=== PATIENT | female | born 1970 | race Caucasian/White ===

== ENCOUNTER 2017-06-02 00:22 | Emergency (ER) | payer OTHER ==
[~2017-06-02] VITALS: Ht 160 cm; Wt 78.0 kg
[2017-06-02 00:23] VITALS: BP 132/83; PULSE 91; RESP 18; TEMP 98.4; O2SAT 100
--- NOTE | 2017-06-02 00:50 | PD ---
HPI Chief Complaint: Back/ Neck Pain or Injury Time Seen by Provider: 00:41 Travel History International Travel<30 days: No Contact w/Intl Traveler<30days: No Traveled to known affect area: No History of Present Illness HPI WHILE RESTING/SLEEPING SHE TURNED AND THE PAIN TO HER RIGHT SIDE OF NECK CAUSED HER TO WAKE UP. [place], 01/26, NONRADIATING, WORSENED BY MOVING NECK.... ALL:DENIES PMH: DM AND BULGING NECK DISC PSHX: GB, BTL PFSH Past Medical History Diabetes: Yes Patient Takes Glucophage: Yes ?: Not Tubal Ligation: Yes Past Surgical History Cholecystectomy: Yes Social History Alcohol Use: Yes (OCC) Tobacco Use: Yes (<5CIG DAILY) Substance Use: No Allergies-Medications (Allergen,Severity, Reaction): Coded Allergies: No Known Allergies (Unverified , 06/02/17) Reported Meds & Prescriptions Reported Meds & Active Scripts Active No Active Prescriptions or Reported Medications Review of Systems Except as stated in HPI: all other systems reviewed are Neg General / Constitutional: No: Fever Eyes: No: Visual changes HENT: No: Headaches Cardiovascular: No: Chest Pain or Discomfort Respiratory: No: Shortness of Breath Gastrointestinal: No: Abdominal Pain Genitourinary: No: Dysuria Musculoskeletal: Positive: Limited ROM, Pain Skin: No Rash Neurologic: No: Weakness Psychiatric: No: Depression Endocrine: No: Polydipsia Hematologic/Lymphatic: No: Easy Bruising Physical Exam Narrative GENERAL: SKIN: Warm and dry. HEAD: Atraumatic. Normocephalic. EYES: Pupils equal and round. No scleral icterus. No injection or drainage. ENT: No nasal bleeding or discharge. Mucous membranes pink and moist. NECK: Trachea midline. No JVD. SPASM PALPABLE AT POSTERIOR SCM, FROM OCCIPITAL TRIANGLE TO MID NECK PARASPINAL, NO MIDLINE TTP, CARDIOVASCULAR: Regular rate and rhythm. RESPIRATORY: No accessory muscle use. Clear to auscultation. Breath sounds equal bilaterally. GASTROINTESTINAL: Abdomen soft, non-tender, nondistended. MUSCULOSKELETAL: Extremities without clubbing, cyanosis, or edema. No obvious deformities. NEUROLOGICAL: Awake and alert. No obvious cranial nerve deficits. Motor grossly within normal limits. Five out of 5 muscle strength in the arms and legs. Normal speech. PSYCHIATRIC: Appropriate mood and affect; insight and judgment normal. Data Data Last Documented VS Vital Signs Date Time Temp Pulse Resp B/P (MAP) Pulse Ox O2 Delivery O2 Flow Rate FiO2 06/02/17 00:23 98.4 91 18 132/83 (99) 100 Room Air Orders Orders Ketorolac Inj (Toradol Inj) (06/02/17 01:00) Lorazepam Inj (Ativan Inj) (06/02/17 01:00) Ct Cerv Spine W/O Contrast (06/02/17 00:52) MDM Medical Decision Making Medical Screen Exam Complete: Yes Emergency Medical Condition: Yes Medical Record Reviewed: Yes Differential Diagnosis TORTICOLLIS V NECK SPRAIN V SPINAL CORD COMPRESSION V DISC DISEASE Narrative Course SIGNED OUT PENDING CT NECK, LONG NO MODERATE TO SEVERE SPINAL STENOSIS PRESENT, CAN D/C HOME. Diagnosis Primary Impression: Torticollis, unspecified Scripts No Active Prescriptions or Reported Meds Samson Faust MD Jun 02, 2017 00:50
[2017-06-02] MEDS ORDERED: KETOROLAC TROMETHAMINE 60 MG/2 ML (IM) VIAL IM ONE (01:00)
[2017-06-02] MEDS ORDERED: LORazepam 2 MG/ML VIAL IM ONE (01:00)
--- NOTE | 2017-06-02 02:04 | RADRPT ---
EXAM DATE/TIME: 06/02/2017 01:43 [facility] COMPARISON: No previous studies available for comparison. INDICATIONS : Neck pain. RADIATION DOSE: 22.78 CTDIvol (mGy) MEDICAL HISTORY : Diabetes mellitus type 2. SURGICAL HISTORY : Cholecystectomy. Tubal ligation. ENCOUNTER: Initial ACUITY: 4 - 6 months PAIN SCALE: 5/10 LOCATION: Bilateral neck TECHNIQUE: Volumetric scanning of the cervical spine was performed. Multiplanar reconstructions in the sagittal, coronal and oblique axial planes were performed. Using automated exposure control and adjustment o f the mA and/or kV according to patient size, radiation dose was kept as low as reasonably achievable to obtain optimal diagnostic quality images. DICOM format image data is available electronically f or review and comparison. FINDINGS: VERTEBRAE: Normal vertebral body height. ALIGNMENT: No evidence of subluxation. C2-C3: The bony spinal canal is normal in size. No evidence of disc bulge or herniation. The neural forami na are bilaterally patent. There is right facet hypertrophy. C3-C4: The bony spinal canal is normal in size. No evidence of disc bulge or herniation. The neural forami na are bilaterally patent. C4-C5: The bony spinal canal is normal in size. No evidence of disc bulge or herniation. The neural forami na are bilaterally patent. C5-C6: The bony spinal canal is normal in size. No evidence of disc bulge or herniation. The neural forami na are bilaterally patent. C6-C7: The bony spinal canal is normal in size. No evidence of disc bulge or herniation. The neural forami na are bilaterally patent. C7-T1: The bony spinal canal is normal in size. No evidence of disc bulge or herniation. The neural forami na are bilaterally patent. There is mild left facet hypertrophy. CONCLUSION: No acute abnormality seen. There is mild scattered facet hypertrophy. Damon Alvarez MD on June 02, 2017 at 1:59 Board Certified Radiologist. This report was verified electronically.
[2017-06-02] MEDS ORDERED: ROBA500T PO (02:21)
[2017-06-02] MEDS ORDERED: IBUP1TAB7 PO (02:21)
--- NOTE | 2017-06-02 02:21 | PD ---
Physical Exam Time Seen by Provider: 02:19 Narrative Please refer to previous providers documentation for details surrounding the patient's current visit. Data Data Last Documented VS Vital Signs Date Time Temp Pulse Resp B/P (MAP) Pulse Ox O2 Delivery O2 Flow Rate FiO2 06/02/17 00:23 98.4 91 18 132/83 (99) 100 Room Air Orders Orders Ketorolac Inj (Toradol Inj) (06/02/17 01:00) Lorazepam Inj (Ativan Inj) (06/02/17 01:00) Ct Cerv Spine W/O Contrast (06/02/17 00:52) Ed Discharge Order (06/02/17 02:19) [facility] Medical Record Reviewed: Yes Supervised Visit with ALFONZO: No Narrative Course Patient is signed out to me a CT imaging pending. CT imaging is complete Last Impressions Cervical Spine CT 06/02/17 005 Signed Impressions: Service Date/Time: Friday, June 02, 2017 01:43 - CONCLUSION: No acute abnormality seen. There is mild scattered facet hypertrophy. Damon Alvarez MD Findings are reviewed and discussed with the patient. Patient is discharged home with pain control. She is encouraged to follow-up with primary care provider and return immediately with any acute worsening symptoms. Diagnosis Primary Impression: Torticollis, unspecified Referrals: Primary Care Physician Patient Instructions: General Instructions, Spasmodic Torticollis (ED) Additional Instruction: Warm moist heat and light massage may help to alleviate your symptoms Follow-up with a primary care provider Return immediately with any acute worsening symptoms Med/Other Pt SpecificInfo: Prescription(s) given Scripts Ibuprofen (Ibuprofen) 800 Mg Tab 800 MG PO Q8H Y for Pain/Inflammation, #30 TAB 0 Refills Prov: Aimee Mendez 06/02/17 Methocarbamol (Robaxin) 500 Mg Tab 500 MG PO QID Y for MUSCLE SPASM, #20 TAB 0 Refills Prov: Aimee Mendez 06/02/17 Disposition: 01 DISCHARGE HOME Condition: Stable Aimee Mendez Jun 02, 2017 02:21
== END 2017-06-02 02:50 | disposition home or self-care (01) ==
LOC: NEPD 00:22
DX: M43.6 Torticollis (principal); M62.838 Other muscle spasm; E11.9 Type 2 diabetes mellitus without complications; Z72.0 Tobacco use; Z79.84 Long term (current) use of oral hypoglycemic drugs
CPT/HCPCS: 72125; 96372; 99285; J1885; J2060